=== PATIENT | female | born 1980 | race Two or more races ===

== ENCOUNTER 2021-02-09 01:48 | Observation (INO) | payer SELFPAY ==
[~2021-02-09 01:48] MED LIST: CEPH500T PO
[2021-02-09] MEDS ORDERED: IV RINGERS,LACTATED 1000ML 1,000 ML IV PRN (02:00)
[2021-02-09 02:22] LABS: BILIRUBIN,URINE NEGATIVE (NEG); CLARITY,URINE CLOUDY; COLOR,URINE YELLOW; NITRITE,URINE NEGATIVE (NEG); PH,URINE 6.5 (<5.0-8.0); PROTEIN,URINE NEGATIVE (NEG-TRACE); UROBILINOGEN,URINE 0.2 mg/dL (0.2 mg/dL)
[2021-02-09 02:25] LABS: AMNIO PT NEGATIVE
[2021-02-09 02:28] LABS: BACTERIA,URINE MANY /HPF (0-FEW); RBC,URINE OCC /HPF (0-2); WBC,URINE 20-40 /HPF (0-4)
== END 2021-02-09 03:30 | disposition home or self-care (01) ==
LOC: 3 SO LND 01:48
PROVIDERS: ADMIT Obstetrics & Gynecology; ATTEND Obstetrics & Gynecology
DX: O42.913 Preterm premature rupture of membranes, unspecified as to length of time between rupture and onset of labor, third trimester (principal); O62.9 Abnormality of forces of labor, unspecified; Z3A.32 32 weeks gestation of pregnancy; Z79.899 Other long term (current) drug therapy
CPT/HCPCS: 36415; 59025; 81001; 84112; 87086; G0378; G0379

== ENCOUNTER 2021-02-11 04:07 | Observation (INO) | payer SELFPAY ==
[2021-02-11] MEDS ORDERED: IV RINGERS,LACTATED 1000ML 1,000 ML IV SCH ×2 (04:15→07:30)
[2021-02-11 04:45] LABS: BILIRUBIN,URINE NEGATIVE (NEG); CLARITY,URINE CLEAR; COLOR,URINE YELLOW; NITRITE,URINE NEGATIVE (NEG); PH,URINE 6.5 (<5.0-8.0); PROTEIN,URINE NEGATIVE (NEG-TRACE); UROBILINOGEN,URINE 0.2 mg/dL (0.2 mg/dL)
[2021-02-11 04:54] LABS: BACTERIA,URINE MANY /HPF (0-FEW); RBC,URINE OCC /HPF (0-2)
[2021-02-11] MEDS ORDERED: LIDOCAINE 1% PF 30 ML VIAL. INJ PRN (07:30)
[2021-02-11] MEDS ORDERED: TERBUTALINE 1 MG/ML VIAL. SQ PRN (07:30)
[2021-02-11] MEDS ORDERED: ACETAMINOPHEN 325 MG TABLET. PO PRN (07:30)
[2021-02-11] MEDS ORDERED: BUTORPHANOL 2 MG/ML VIAL. IVP PRN (07:30)
[2021-02-11] MEDS ORDERED: OXYTOCIN 30 UNIT/500 ML PREMIX 500 ML IV PRN (07:30)
[2021-02-11] MEDS ORDERED: BUTORPHANOL 2 MG/ML VIAL. IV PRN (07:30)
[2021-02-11] MEDS ORDERED: 0.9 % SODIUM CHLORIDE 10 ML DISP.SYRIN. IV PRN (07:30)
[2021-02-11] MEDS ORDERED: BETAMET ACET&NA PHOS 30 MG/5 ML VIAL. IM ONE (09:15)
--- NOTE | 2021-02-11 09:23 | PDOC1 ---
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 The pt had presented on 02/09/21 with LOF. On that visit an aminosure returned neg. Today the pt states that she has been feeling ctxs since yesterday. She noticed a moderate amt of blood when she went the bathroom. On L&D she was found to have ctxs ever 10 min on the toco and she was feeling on them. She was 1 cm dilated at the time. An u/s was performed revealing a TVCL of 4.2 cm. Her BPP was nml, but her STONE was noted to be low nml (6.2 cm). Discussed the findings with the pt. PMH: Denies PSH: back surgery 2009, hemorrhoids 2001, 2004, appendix removal 1994 Meds: PNV, ASA All: PCN OBHx: TC/S x 1, x 1, SAB x 1 SH: no tob, no EtOH FH: DM, HTN Allergies: Coded Allergies: Penicillins (Verified Allergy, Severe, Hives, 02/09/21) Physical Exam: PE: GENERAL: No apparent distress. Alert and oriented. HEENT: Head normocephalic, atraumatic. NECK: Supple LUNGS: Clear to auscultation. HEART: RRR, S1, S2 present, pulses intact ABDOMEN: Soft, positive bowel sounds. EXTREMITIES: No cyanosis or edema. NEUROLOGIC: Normal speech, normal tone PSYCHIATRIC: Normal affect, normal mood. SKIN: No ulceration. FHT: 130s +acels/no decels/mLTV [place]: 5-10 min SVE: 1/50/-3 Labs: Laboratory Tests Test 02/11/21 04:30 Urine Collection Type Unknown Urine Color Yellow Urine Clarity Clear Urine pH 6.5 (<5.0-8.0) Urine Specific [place] 1.015 (1.000-1.030) Urine Protein Negative mg/dL (NEG-TRACE) Urine Glucose (UA) Negative mg/dL (NEG) Urine Ketones (Stick) Negative mg/dL (NEG) Urine Blood Large (NEG) Urine Nitrite Negative (NEG) Urine Bilirubin Negative (NEG) Urine Urobilinogen Dipstick 0.2 mg/dL (0.2 mg/dL) Urine Leukocyte Esterase Moderate (NEG) Urine RBC Occ /HPF (0-2) Urine WBC 11-20 /HPF (0-4) Urine Squamous Epithelial Cells Many /LPF Urine Bacteria Many /HPF (0-FEW) Urine Mucus Slight /LPF Assessment & Plan: A/P 40y @ 32.4 by L=21 1.) VB not a large amt. No previa seen on u/s. Low likelihood of abruption. May be related to PTC/cervical change 2.) PTC vs PTL reassuring cervical length. No need for tocolysis. Will start a course of BMTZ. 3.) Borderline low STONE may need repeat as out pt in a couple of wks 4.) Prev C/S x 1, x 1 desires TOLAC 5.) AMA on ASA 6.) Quad screen pos NIPT neg 7.) GDM recently dxed 8.) PCN All 9.) DPS GIOVANNI consent signed 01/23/21 10.) GBS unk not in labor 11.) Pt to return tomorrow for next dose CHRISTOPHE BARRIENTOS MD Feb 11, 2021 09:23
[2021-02-11 10:10] VITALS: BP 121/69
--- NOTE | 2021-02-11 11:41 | RAD ---
EXAM: OB ultrasound and biophysical profile CLINICAL HISTORY: Transvaginal cervical length and biophysical profile, STONE COMPARISON: None available. TECHNIQUE: Multiple grayscale images, color Doppler, and M-mode images of the uterus are obtained. Bi ophysical profile was performed. FINDINGS: The lie is cephalic. Cervix measures 4.5 cm and is closed. STONE: 6.2 cm Heart Rate:135 bpm BREATHIN/2 MOVEMENT: 2/2 TONE: 2/2 FLUID: 2/2 BIOPHYSICAL PROFILE SCORE: 8/8 Biparietal diameter: 7.82 cm, 31 weeks 3 days Head circumference: 29.15 cm, 32 weeks 1 day Abdominal circumference: 28.68 cm, 32 weeks 5 days Femur length: 6.17 cm, 32 weeks 0 days Estimated gestational age by ultrasound: 32 weeks 1 day EFW: 4 lbs. 5 oz. SUGEY 04/07/2021. IMPRESSION: 1. Single living intrauterine in cephalic position. Gestational age by ultrasound 32 weeks 1 day, EFW 4 lbs. 5 oz. 2. Biophysical profile score 8/8. STONE is 6.2 cm. 3. The cervix measures 4.5 cm and is closed. Electronically signed by: Carina Rico MD (02/11/2021 11:39 AM) [id number]
== END 2021-02-11 09:25 | disposition home or self-care (01) ==
LOC: 3 SO LND 04:07
PROVIDERS: ADMIT Obstetrics & Gynecology; ATTEND Obstetrics & Gynecology
DX: O62.9 Abnormality of forces of labor, unspecified (principal); O34.219 Maternal care for unspecified type scar from previous cesarean delivery; O60.03 Preterm labor without delivery, third trimester; O24.419 Gestational diabetes mellitus in pregnancy, unspecified control; O09.523 Supervision of elderly multigravida, third trimester; Z3A.32 32 weeks gestation of pregnancy; Z79.899 Other long term (current) drug therapy; Z90.49 Acquired absence of other specified parts of digestive tract; Z98.890 Other specified postprocedural states
CPT/HCPCS: 59025; 76817; 76819; 81001; 87086; G0378; G0379; J0702

== ENCOUNTER 2021-02-12 09:07 | Observation (INO) | payer SELFPAY ==
[2021-02-11 10:10] VITALS: BP 121/69
[2021-02-12] MEDS ORDERED: BETAMET ACET&NA PHOS 30 MG/5 ML VIAL. IM ONE (10:00)
== END 2021-02-12 10:41 | disposition home or self-care (01) ==
LOC: 3 SO LND 09:07
PROVIDERS: ADMIT Obstetrics & Gynecology; ATTEND Obstetrics & Gynecology
DX: Z34.93 Encounter for supervision of normal pregnancy, unspecified, third trimester (principal); Z3A.32 32 weeks gestation of pregnancy
CPT/HCPCS: 59025; 96372; G0378; G0379; J0702

== ENCOUNTER 2021-02-23 08:25 | Observation (INO) | payer SELFPAY ==
[2021-02-23] MEDS ORDERED: IV RINGERS,LACTATED 1000ML 1,000 ML IV SCH (09:00)
[2021-02-23 09:05] LABS: BILIRUBIN,URINE NEGATIVE (NEG); CLARITY,URINE CLEAR; COLOR,URINE YELLOW; NITRITE,URINE NEGATIVE (NEG); PH,URINE 6.5 (<5.0-8.0); PROTEIN,URINE NEGATIVE (NEG-TRACE); UROBILINOGEN,URINE 0.2 mg/dL (0.2 mg/dL)
[2021-02-23 09:31] LABS: AMNIO PT NEGATIVE
[2021-02-23 09:35] LABS: BACTERIA,URINE MODERATE /HPF (0-FEW); RBC,URINE 0 /HPF (0-2)
== END 2021-02-23 10:48 | disposition home or self-care (01) ==
LOC: 3 SO LND 08:25
PROVIDERS: ADMIT Obstetrics & Gynecology; ATTEND Obstetrics & Gynecology
DX: O62.9 Abnormality of forces of labor, unspecified (principal); O42.913 Preterm premature rupture of membranes, unspecified as to length of time between rupture and onset of labor, third trimester; Z3A.34 34 weeks gestation of pregnancy; Z79.899 Other long term (current) drug therapy
CPT/HCPCS: 36415; 59025; 81001; 84112; 87086; G0378; G0379

== ENCOUNTER 2021-02-27 17:16 | Observation (INO) | payer SELFPAY ==
[2021-02-27] MEDS ORDERED: IV RINGERS,LACTATED 1000ML 1,000 ML IV PRN (17:45)
[2021-02-27 17:48] LABS: BILIRUBIN,URINE NEGATIVE (NEG); CLARITY,URINE CLEAR; COLOR,URINE YELLOW; NITRITE,URINE NEGATIVE (NEG); PROTEIN,URINE NEGATIVE (NEG-TRACE); UROBILINOGEN,URINE 0.2 mg/dL (0.2 mg/dL)
[2021-02-27 17:57] LABS: BACTERIA,URINE MODERATE /HPF (0-FEW)
[2021-02-27 17:58] LABS: RBC,URINE 0 /HPF (0-2)
[2021-02-27 18:52] LABS: BASO # 0.1 x10^3/uL (0.0-0.2); BASO % 1 % (0-3); EOS # 0.1 x10^3/uL (0.0-0.7); EOS % 1 % (0-3); HEMATOCRIT 35.6 % (36.0-47.0); HEMOGLOBIN 12.3 g/dL (12.0-15.5); LYMPH # 1.7 x10^3/uL (1.0-4.8); LYMPH % 20 % (24-48); MEAN CORPUSCULAR HEMOGLOBIN 31 pg (25-35); MEAN CORPUSCULAR HGB CONC 35 g/dL (31-37); MEAN CORPUSCULAR VOLUME 91 fL (79-100); MONO # 0.8 x10^3/uL (0.0-1.1); MONO % 10 % (0-9); NEUT # 5.6 x10^3/uL (1.8-7.7); NEUT % 68 % (31-73); PLATELET COUNT 272 x10^3/uL (140-400); RED BLOOD COUNT 3.92 x10^6/uL (3.50-5.40); RED CELL DISTRIBUTION WIDTH 14.1 % (11.5-14.5); WHITE BLOOD COUNT 8.3 x10^3/uL (4.0-11.0)
[2021-02-27 18:54] LABS: CREATININE,RANDOM URINE 43.8 mg/dL (Not Establ.)
[2021-02-27 19:07] LABS: CALCIUM 8.6 mg/dL (8.5-10.1); CREATININE 0.8 mg/dL (0.6-1.0); POTASSIUM 3.9 mmol/L (3.5-5.1)
[2021-02-27 19:13] LABS: ALBUMIN 2.7 g/dL (3.4-5.0); ALBUMIN/GLOBULIN RATIO 0.7 (1.0-1.7); TOTAL BILIRUBIN 0.3 mg/dL (0.2-1.0); TOTAL PROTEIN 6.5 g/dL (6.4-8.2); URIC ACID 6.1 mg/dL (2.6-6.0)
[2021-02-27] MEDS ORDERED: ACETAMINOPHEN 500 MG TABLET PO ONE (20:00)
== END 2021-02-27 20:00 | disposition home or self-care (01) ==
LOC: 3 SO LND 17:16
PROVIDERS: ADMIT Obstetrics & Gynecology; ATTEND Obstetrics & Gynecology
DX: O26.893 Other specified pregnancy related conditions, third trimester (principal); R51.9 Headache, unspecified; R42 Dizziness and giddiness; H53.8 Other visual disturbances; Z3A.34 34 weeks gestation of pregnancy; Z79.899 Other long term (current) drug therapy
CPT/HCPCS: 36415; 59025; 80053; 81001; 82570; 83615; 84156; 84550; 85025; 87086; G0378; G0379

== ENCOUNTER 2021-03-07 06:40 | Observation (INO) | payer SELFPAY ==
[2021-03-07] MEDS ORDERED: IV RINGERS,LACTATED 1000ML 1,000 ML IV SCH ×2 (07:00→08:00)
[2021-03-07 07:22] LABS: BILIRUBIN,URINE NEGATIVE (NEG); CLARITY,URINE CLEAR; COLOR,URINE YELLOW; NITRITE,URINE NEGATIVE (NEG); PROTEIN,URINE NEGATIVE (NEG-TRACE); UROBILINOGEN,URINE 0.2 mg/dL (0.2 mg/dL)
[2021-03-07 07:45] LABS: BACTERIA,URINE FEW /HPF (0-FEW)
[2021-03-07] MEDS: CLINDAMYCIN 600MG PREMIX 50 ML IV SCH ×2 (08:18→15:37)
[2021-03-07 08:59] LABS: CREATININE,RANDOM URINE 63.6 mg/dL (Not Establ.)
[2021-03-07] MEDS ORDERED: LABETALOL HCL 200 MG TABLET PO SCH (11:00)
[2021-03-07 11:47] VITALS: BP 120/60
== END 2021-03-07 16:30 | disposition home or self-care (01) ==
LOC: 3 SO LND 06:40
PROVIDERS: ADMIT Obstetrics & Gynecology; ATTEND Obstetrics & Gynecology
DX: O62.9 Abnormality of forces of labor, unspecified (principal); O46.93 Antepartum hemorrhage, unspecified, third trimester; O26.893 Other specified pregnancy related conditions, third trimester; R10.13 Epigastric pain; Z3A.36 36 weeks gestation of pregnancy; Z79.899 Other long term (current) drug therapy; Z98.890 Other specified postprocedural states
CPT/HCPCS: 81001; 82570; 84156; 87086; 96365; 96366; G0378; G0379; J3490; J7120

== ENCOUNTER 2021-03-09 11:00 | Observation (INO) | payer SELFPAY ==
[2021-03-09] MEDS ORDERED: IV RINGERS,LACTATED 1000ML 1,000 ML IV SCH (11:15)
[2021-03-09 11:26] LABS: BILIRUBIN,URINE NEGATIVE (NEG); CLARITY,URINE CLEAR; COLOR,URINE YELLOW; NITRITE,URINE NEGATIVE (NEG); PROTEIN,URINE NEGATIVE (NEG-TRACE); UROBILINOGEN,URINE 0.2 mg/dL (0.2 mg/dL)
[2021-03-09 11:41] LABS: BACTERIA,URINE FEW /HPF (0-FEW); RBC,URINE 0 /HPF (0-2)
[2021-03-09 12:38] LABS: BASO # 0.1 x10^3/uL (0.0-0.2); BASO % 1 % (0-3); EOS # 0.1 x10^3/uL (0.0-0.7); EOS % 1 % (0-3); HEMATOCRIT 33.1 % (36.0-47.0); HEMOGLOBIN 11.5 g/dL (12.0-15.5); LYMPH # 1.8 x10^3/uL (1.0-4.8); LYMPH % 20 % (24-48); MEAN CORPUSCULAR HEMOGLOBIN 31 pg (25-35); MEAN CORPUSCULAR HGB CONC 35 g/dL (31-37); MEAN CORPUSCULAR VOLUME 90 fL (79-100); MONO # 0.6 x10^3/uL (0.0-1.1); MONO % 7 % (0-9); NEUT # 6.5 x10^3/uL (1.8-7.7); NEUT % 72 % (31-73); PLATELET COUNT 288 x10^3/uL (140-400); RED BLOOD COUNT 3.69 x10^6/uL (3.50-5.40)
[2021-03-09 12:52] LABS: CALCIUM 8.5 mg/dL (8.5-10.1); CREATININE 0.9 mg/dL (0.6-1.0); POTASSIUM 4.1 mmol/L (3.5-5.1)
[2021-03-09 13:00] LABS: ALBUMIN 2.4 g/dL (3.4-5.0); ALBUMIN/GLOBULIN RATIO 0.7 (1.0-1.7); TOTAL BILIRUBIN 0.2 mg/dL (0.2-1.0)
== END 2021-03-09 13:50 | disposition home or self-care (01) ==
LOC: 3 SO LND 11:00
PROVIDERS: ADMIT Obstetrics & Gynecology; ATTEND Obstetrics & Gynecology
DX: O46.93 Antepartum hemorrhage, unspecified, third trimester (principal); O26.893 Other specified pregnancy related conditions, third trimester; L29.9 Pruritus, unspecified; R51.9 Headache, unspecified; Z3A.36 36 weeks gestation of pregnancy
CPT/HCPCS: 36415; 59025; 80053; 81001; 85025; G0378; G0379

== ENCOUNTER 2021-03-12 07:47 | Observation (INO) | payer SELFPAY ==
[2021-03-12] MEDS ORDERED: IV RINGERS,LACTATED 1000ML 1,000 ML IV SCH (08:15)
[2021-03-12 08:36] LABS: BILIRUBIN,URINE NEGATIVE (NEG); CLARITY,URINE CLEAR; COLOR,URINE YELLOW; NITRITE,URINE NEGATIVE (NEG); PH,URINE 6.5 (<5.0-8.0); PROTEIN,URINE NEGATIVE (NEG-TRACE); UROBILINOGEN,URINE 0.2 mg/dL (0.2 mg/dL)
[2021-03-12 08:51] LABS: BACTERIA,URINE FEW /HPF (0-FEW); RBC,URINE OCC /HPF (0-2); WBC,URINE OCC /HPF (0-4)
== END 2021-03-12 10:50 | disposition home or self-care (01) ==
LOC: 3 SO LND 07:47
PROVIDERS: ADMIT Obstetrics & Gynecology; ATTEND Obstetrics & Gynecology
DX: O46.93 Antepartum hemorrhage, unspecified, third trimester (principal); O36.8130 Decreased fetal movements, third trimester, not applicable or unspecified; Z3A.36 36 weeks gestation of pregnancy
CPT/HCPCS: 59025; 81001; 87653; G0378; G0379